=== PATIENT | male | born 1965 | race African-American/Black ===

== ENCOUNTER 2019-06-22 19:46 | Emergency (ER) | payer SELFPAY ==
[~2019-06-22] VITALS: Ht 170.2 cm; Wt 68.0 kg
[2019-06-22] MEDS ORDERED: REGULAR INSULIN (20:58)
[2019-06-22] MEDS ORDERED: CEPHALEXIN 250 MG CAPSULE. PO ONE (21:30)
[2019-06-22] MEDS ORDERED: HYDROcodone/APAP 10/325 1 TAB TABLET PO ONE ×2 (21:30→23:30)
[2019-06-23] VITALS: BP 134/75
[2019-06-23] MEDS ORDERED: HYDR-2761 PO (00:19)
[2019-06-23] MEDS ORDERED: CEPH-264 PO (00:19)
--- NOTE | 2019-06-23 00:55 | PHYS DOC ---
Text Text Right fifth finger laceration with nailbed injury and underlying phalanx fracture. Wound irrigated, bandaged and placed in splint. No attempts were made to remove her reattach the nail given that it appeared to be nonviable. Tissues are well approximated. Patient giving antibiotics and pain medication and finger wrapped in gauze with splint. Will allow wound to heal by secondary intention referred to orthopedic surgeon for further evaluation. General Chief Complaint: FINGER INJURY Stated Complaint: RIGHT PINKY INJURY Time Seen by MD: 20:52 Source: patient Exam Limitations: no limitations History of Present Illness Initial Comments Patient right-handed 54 old -[place] male who presents with right small finger injury which occurred several hours prior to ED arrival. Patient states he accidentally closed his finger on the car door. On exam, there is semi- circumferential laceration involving the nail of the right fifth digit. The nail bed is partially avulsed with angulation at the distal tip. Bleeding is controlled. The wound was cleaned prior to ED arrival to this last updated in the past 3 years.. Onset: just prior to arrival Severity: mild Pain/Injury Location: right 5th finger Method of Injury: direct blow Modifying Factors: improves with movement Allergies: Coded Allergies: No Known Drug Allergies (Unverified , 06/22/19) Past Medical History Medical History: no pertinent history Family History Significant Family History: no pertinent family hx Review of Systems Constitutional: no symptoms reported EENTM: no symptoms reported Respiratory: no symptoms reported Cardiovascular: no symptoms reported Gastrointestinal: no symptoms reported Musculoskeletal: see HPI Skin: see HPI Psychiatric/Neurological: no symptoms reported All Other Systems: Reviewed and Negative Physical Exam General Appearance: mild distress (secondary to apin), other (distress secondary to pain.) Hand: asymmetry, deformity, laceration, nail injury, soft tissue tenderness (right fifth distal phalanx semicircumferential laceration extending through the base of the nail bed with displacement of the nail and angulation of the distal tip) Neurologic/Tendon: normal sensation TRINIDAD PRADHAN DO Jun 23, 2019 00:55
--- NOTE | 2019-06-23 06:39 | RAD ---
EXAM: PA view of the hand, oblique and lateral views of the small finger DATE: 06/22/2019 9:00 PM INDICATION: Trauma, fifth digit of right hand COMPARISON: No Prior FINDINGS: Transverse fracture through the tuft of the distal phalanx right small finger with moderate associated soft tissue swelling is mildly displaced. Scattered IP joint degenerative changes are seen. Old/healed distal radial fracture changes are seen. IMPRESSION: 1. Transverse fracture tuft small finger distal phalanx is mildly displaced. 2. Associated soft tissue swelling is seen. Electronically signed by: Leighton Rg MD (06/23/2019 6:36 AM) [facility]
== END 2019-06-23 00:36 | disposition home or self-care (01) ==
LOC: ER 19:46
DX: S62.636A Displaced fracture of distal phalanx of right little finger, initial encounter for closed fracture (principal); W23.0XXA Caught, crushed, jammed, or pinched between moving objects, initial encounter; Y93.89 Activity, other specified; Y92.89 Other specified places as the place of occurrence of the external cause; Y99.8 Other external cause status
CPT/HCPCS: 29130; 73140; 99284

== ENCOUNTER 2021-10-28 08:40 | Emergency (ER) | payer SELFPAY ==
[~2021-10-28] VITALS: Ht 170.2 cm; Wt 68.1 kg
[~2021-10-28 08:40] MED LIST: CEPH-264 PO; HYDR-2761 PO; REGULAR INSULIN
[2021-10-28 08:42] VITALS: BP 120/85
[2021-10-28] MEDS ORDERED: IBUPROFEN 200 MG TABLET. PO ONE (09:15)
[2021-10-28] MEDS ORDERED: KETOROLAC 60 MG/2 ML VIAL. IM ONE (09:15)
--- NOTE | 2021-10-28 09:16 | PHYS DOC ---
Past Medical History Past Medical History: Diabetes-Type II Past Surgical History: No Surgical History Smoking Status: Current Every Day Smoker Alcohol Use: Occasionally Drug Use: None General Adult EDM: Chief Complaint: KNEE INJURY HPI: HPI: Patient is a 56 male who presents to the emergency department complaining of left knee Pain that started approximately 1 week ago. Patient reports a constant 9 out of 10 pain. Patient denies recent injury to this knee. Patient reports he fractured it back in June 2021 and was going through physical therapy at [facility] orthoped[facility], states he did not complete the physical therapy. Patient reports he has not taken any [id number] pain medication or prescription pain medication for this painful left knee. Patient states it appears swollen to him. Patient denies numbness or tingling distal to his left knee. Patient states he is a type II diabetic and takes Metformin and insulin. Patient denies other physical complaints or physical concerns. Review of Systems: Review of Systems: 14 body systems of review of systems have been reviewed. See HPI for pertinent positives and negative responses, otherwise all other systems are negative, nonpertinent or noncontributory. Constitutional: Negative except as outlined in HPI above. Skin: Negative except as outlined in HPI above. Eyes: Negative except as outlined in HPI above. HENT: Negative except as outlined in HPI above. Respiratory: Negative except as outlined in HPI above. Cardiovascular: Negative except as outlined in HPI above. GI: Negative except as outlined in HPI above. : Negative except as outlined in HPI above. Musculoskeletal: Negative except as outlined in HPI above. Integument: Negative except as outlined in HPI above. Neurologic: Negative except as outlined in HPI above. Endocrine: Negative except as outlined in HPI above. Lymphatic: Negative except as outlined in HPI above. Psychiatric: Negative except as outlined in HPI above. Heart Score: C/O Chest Pain: No Risk Factors: Risk Factors: DM, Current or recent (<one month) smoker, HTN, HLP, family history of CAD, obesity. Risk Scores: Score 0 - 3: 2.5% MACE over next 6 weeks - Discharge Home Score 4 - 6: 20.3% MACE over next 6 weeks - Admit for Clinical Observation Score 7 - 10: 72.7% MACE over next 6 weeks - Early Invasive Strategies Allergies: Allergies: Allergies Coded Allergies Type Severity Reaction Last Updated Verified No Known Drug Allergies 10/28/21 No Physical Exam: PE: Constitutional: Well developed, well nourished, no acute distress, non-toxic appearance. 56-year-old male in no apparent distress. HENT: Normocephalic, atraumatic. Eyes: Conjunctiva normal, no discharge. Neck: Normal range of motion, no stridor. Cardiovascular: No cyanosis appreciated, distal cap refill less than 2 seconds. Lungs & Thorax: Patient is in no respiratory distress, no audible adventitious lung sounds appreciated. Abdomen: Nontender, no abnormalities noted. Skin: Warm, dry, no erythema, no rash. Back: No tenderness, no deformities. Extremities: No tenderness, no cyanosis, no clubbing, ROM intact, no edema. Except for left knee, pain to palpation over distal patellar tendon, no swelling appreciated, no pain over popliteal surfaces. Distal cap refill less than 2 seconds bilateral lower extremities, 2+ dorsalis pedis pulses equal bilaterally, there is no swelling, no edema, no crepitus, no deformity appreciated. No areas of ecchymosis, no visualized injury. Neurologic: Alert and oriented X 3, normal motor function, normal sensory function, no focal deficits noted. Psychologic: Affect normal, judgement normal, mood normal. Current Patient Data: Vital Signs: Vital Signs Date Time Temp Pulse Resp B/P (MAP) Pulse Ox O2 Delivery O2 Flow Rate FiO2 10/28/21 08:42 98.4 85 16 120/85 (97) 96 Room Air 98.4 EKG: EKG: [] Radiology/Procedures: Radiology/Procedures: REASON: Pain and swelling, history of previous fracture PROCEDURE: KNEE LEFT 4V XR KNEE _4 VIEWS WITH PATELLA_LT Clinical indications: Reason: Pain and swelling, history of previous fracture / Spl. 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 No acute fracture or dislocation or osteolytic process is evident. No knee joint effusion is seen radiographically. Metallic foreign body is seen within the posterior lateral soft tissues of the distal thigh measuring 4 mm. IMPRESSION: No acute osseous abnormality is evident. Electronically signed by: Eugene Davey MD (10/28/2021 9:42 AM) [id number] Course & Med Decision Making: Course & Med Decision Making Pertinent Labs and Imaging studies reviewed. (See chart for details) 56-year-old male, vital signs reviewed, presents emerged from concerning left knee pain. Physical examination is concerning for bony injury. Will x-ray left knee, give p.o. pain medication. 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 Discussed with patient will place knee immobilizer, crutches, nonweightbearing, strict follow-up with orthopedics this week, return to ER precautions or concerns were reviewed, patient gave verbal understanding of and is amenable to ED discharge planning. Discussed with the patient all findings and diagnostic testing as well as the need to follow-up with their primary care provider for further evaluation and treatment or return to the ED if any new or worsening symptoms. Strict return precautions were also discussed at length, the patient voiced understanding and agreement with the discharge planning. The patient was nontoxic in appearance, in no apparent distress, and hemodynamically stable at the time of disposition. Dragon Disclaimer: [employer] Disclaimer: This electronic medical record was generated, in whole or in part, using a voice recognition dictation system. Departure Departure Impression: Primary Impression: Left knee pain Qualified Codes: M25.562 - Pain in left knee Disposition: HOME / SELF CARE / HOMELESS Condition: GOOD Referrals: NO PCP (PCP) JORGE VILLARREAL Jr. DO Additional Instructions: You were seen today in the emergency department for pain to the left knee. You stated you had fractured this knee in June 2021. Your x-ray did not show any new fracture however it did show a nonunion of your old fracture. I have placed you in a knee immobilizer, I will prescribe for you pain medications. Please follow-up with an public transit specialist this week, call Saturday for the soonest appointment for reevaluation and ongoing management of your old knee fracture. I have given information for public transit specialist Dr. Villarreal however you may choose any public transit specialist of your choice. Please follow- up with your primary care physician for ongoing pain management. Thank you for visiting our Emergency Department. It was a pleasure taking care of you today in the emergency department and we appreciate you trusting us with your care. If any additional problems come up don't hesitate to return to visit us. Please follow up with your primary care provider so they can plan additional care if needed and know about the problem that you had. If symptoms worsen come back to the Emergency Department. Any concerning symptoms that start such as chest pain, shortness of air, weakness or numbness on one side of the body, running high fevers or any other concerning symptoms return to the ER. Ramon [facility] [address] [place] [address] [facility] [address] [place] [address] [facility] [address] [place] [address] [facility] [address] [place] [address] [facility] [address] [place] [address] [facility] [address] [place] [address] [facility] [address] [place] [address] [facility] [address] [place] [address] [facility] [address] [place] [address] [facility] [address] [place] [address] Scripts Ibuprofen (IBUPROFEN) 600 Mg Tablet 600 MG PO PRN Q6HRS PRN for INFLAMMATION, #30 TAB 0 Refills Prov: HERLINDA GUERRERO APRN 10/28/21 HERLINDA GUERRERO APRN Oct 28, 2021 09:16
--- NOTE | 2021-10-28 09:45 | RAD ---
XR KNEE _4 VIEWS WITH PATELLA_LT Clinical indications: Reason: Pain and swelling, history of previous fracture / Spl. 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 No acute fracture or dislocatio n or osteolytic process is evident. No knee joint effusion is seen radiographically. Metallic foreign body is seen within the posterior lateral soft tissues of the distal thigh measuring 4 mm. IMPRESSION: No acute osseous abnormality is evident. Electronically signed by: Eugene Davey MD (10/28/2021 9:42 AM) [id number]
[2021-10-28] MEDS ORDERED: IBUP-1007 PO (10:32)
== END 2021-10-28 10:39 | disposition home or self-care (01) ==
LOC: ER 08:40
DX: M25.562 Pain in left knee (principal); E11.9 Type 2 diabetes mellitus without complications; F17.200 Nicotine dependence, unspecified, uncomplicated
CPT/HCPCS: 29505; 73564; 99283; J1885